=== PATIENT | female | born 2000 | race Hispanic/Latino ===

== ENCOUNTER 2023-12-28 18:09 | Emergency (ER) | payer SELFPAY ==
[~2023-12-28] VITALS: Ht 154.9 cm; Wt 57.6 kg
[2023-12-28 18:12] VITALS: BP 110/75; PULSE 74; RESP 20
[2023-12-28] MEDS: LIDOCAINE HCL 1% 20 ML VIAL INJ STA (21:00)
[2023-12-28] MEDS: IBUPROFEN 800 MG TAB PO STA (21:00)
[2023-12-28] MEDS: DIPH,PERTUSS(ACELL),TET VAC/PF 0.5 ML VIAL IM ONE (21:52)
== END 2023-12-28 22:09 | disposition home or self-care (01) ==
LOC: EDH 18:09
DX: S61.512A Laceration without foreign body of left wrist, initial encounter (principal); K21.9 Gastro-esophageal reflux disease without esophagitis; W26.0XXA Contact with knife, initial encounter; Y93.89 Activity, other specified; Y92.89 Other specified places as the place of occurrence of the external cause; Y99.8 Other external cause status
CPT/HCPCS: 12002; 90471; 90715